=== PATIENT | male | born 1960 ===

== ENCOUNTER 2018-07-15 18:13 | Emergency (ER) | payer OTHER ==
[2018-07-15 18:23] VITALS: PULSE 80; RESP 16; TEMP 98.9; O2SAT 100
[2018-07-15] MEDS ORDERED: Tetanus/Diphtheria Toxoids 0.5 ml Syringe IM ONE (18:44)
--- NOTE | 2018-07-15 18:47 | C.PDOC ---
History Of Present Illness 58 yo male come in for evaluation of left index finger painful swelling gradually developed for past 3-4 days. Pt reports, " works in construction" but unable to recall any direct trauma. Pt denies fever, chills, headache, dizziness, visual changes, focal deficits, neck pain, CP, SOB, dyspnea, palpitation, abd. pain, V/D, back pain, UTI sx, denies deformity, weakness, sensory or vascular deficits to left hand. Ambulate to Ed for evaluation, not in any apparent distress. Time Seen by Provider: 07/15/18 18:14 Chief Complaint (Nursing): Upper Extremity Problem/Injury History Per: Patient Past Medical History Reviewed: Historical Data, Nursing Documentation, Vital Signs Vital Signs: Last Vital Signs Temp 98.9 F 07/15/18 18:20 Pulse 80 07/15/18 18:20 Resp 16 07/15/18 18:20 BP 172/104 H 07/15/18 18:20 Pulse Ox 100 07/15/18 18:20 - Medical History PMH: HTN Family History: States: No Known Family Hx - Social History Hx Alcohol Use: No Hx Substance Use: No - Immunization History Hx Tetanus Toxoid Vaccination: No Hx Influenza Vaccination: No Hx Pneumococcal Vaccination: No Review Of Systems Except As Marked, All Systems Reviewed And Found Negative. Constitutional: Negative for: Fever, Chills Eyes: Negative for: Vision Change ENT: Negative for: Ear Discharge, Nose Discharge Cardiovascular: Negative for: Chest Pain, Palpitations, Edema, Light Headedness Respiratory: Negative for: Cough, Shortness of Breath, Wheezing Gastrointestinal: Negative for: Nausea, Vomiting, Abdominal Pain, Diarrhea Genitourinary: Negative for: Dysuria Musculoskeletal: Positive for: Hand Pain. Negative for: Neck Pain Skin: Positive for: Lesions Neurological: Negative for: Weakness, Numbness, Altered Mental Status, Headache, Dizziness Physical Exam - Physical Exam Appears: Well, Non-toxic, No Acute Distress Skin: Normal Color, Warm, Other ((+) tender mass 1cm diameter, soft, erythematous over Left 2nd proximal phalanx, (-) flactulance, no proximal streaking) Head: Normacephalic Eye(s): bilateral: PERRL, EOMI Nose: No Flaring, No Discharge Oral Mucosa: Moist Tongue: Normal Appearing Lips: Normal Appearing Throat: No Erythema, No Drooling Neck: Trachea Midline, Supple Cardiovascular: Rhythm Regular, No Murmur, No JVD, Other ((-) carotid rbuits B/L) Respiratory: No Decreased Breath Sounds, No Accessory Muscle Use, No Stridor, No Wheezing Gastrointestinal/Abdominal: Soft, No Tenderness, No Distention, No Guarding Back: No CVA Tenderness Extremity: Normal ROM, No Pedal Edema, Capillary Refill (less than 2ses to left hand), No Deformity, No Swelling Neurological/Psych: Oriented x3, Normal Speech, Normal Motor, Normal Sensation, Normal Reflexes ED Course And Treatment O2 Sat by Pulse Oximetry: 100 Pulse Ox Interpretation: Normal Progress Note: On re-eval, pt is afebrile, hemodynamicaly stable. Non-toxic. Ambulatory in Ed with stable gait. ENT: no acute findings. neck: Supple, (-) JVD. Lungs: CTA B/L, BS equal B/L. CVS: (+)S1S2, reg. Abd: benign. Neuorlogicaly intact. left hand: exam c/w earlu abscess to left index finger, no flactulance.As per RN, pt sts, tetanus is UTD now. Pt admits not compliant with HTN medictaion " my BP is always high", denies any associated sx. Pt advised to F/u with PMD in1-2 days for re-evaluation of BP. return if any new changes. Disposition Counseled Patient/Family Regarding: Diagnosis, Need For Followup, Rx Given - Disposition Referrals: [facility] [Outside] Disposition: HOME/ ROUTINE Disposition Time: 18:44 Condition: STABLE Additional Instructions: Warm salty water finger soaks twice daily for 4-5 days take medication as prescribed Follow up with PMD in 2-3 days for re-evaluation. return to ED if any worsening or new changes. Prescriptions: Doxycycline Hyclate [Doryx] 100 mg PO BID #14 cap Instructions: Boil (DC), High Blood Pressure (DC) Forms: Contents First (Beninese) - Clinical Impression Clinical Impression: Abscess, Hypertension
[2018-07-15] MEDS ORDERED: hydrALAZINE 12.5 mg Tab PO STA (18:58)
[2018-07-15 19:42] VITALS: BP 174/113
== END 2018-07-15 20:07 | disposition home or self-care (01) ==
LOC: C.ER 18:13
DX: L02.512 Cutaneous abscess of left hand (principal); I10 Essential (primary) hypertension